=== PATIENT | female | born 1990 | race Caucasian/White ===

== ENCOUNTER 2018-08-30 19:21 | Emergency (ER) | payer MEDICAID, OTHER ==
--- NOTE | 2018-08-30 20:08 | XRAY Report ---
Reason: injury Procedure Date: 08/30/2018 Accession Number: [id number] / [id number] Procedure: XR - Knee 4 View RT CPT Code: FULL RESULT: EXAM: RIGHT KNEE PAIN AFTER TWISTING INJURY PLAYING SOCCER. KNEE RADIOGRAPHY EXAM DATE: 08/30/2018 07:43 PM. CLINICAL HISTORY: Injury. COMPARISON: None. TECHNIQUE: 4 views. FINDINGS: Bones: Normal. No fractures or bone lesions. Joints: Normal. No effusion. No subluxations. Soft Tissues: Normal. No soft tissue swelling. IMPRESSION: Normal knee radiography. [facility]
[2018-08-30 21:13] VITALS: BP 114/75
[2018-08-30] MEDS ORDERED: HYDROcod/ACETAM 5/325 MG TABLET PO STA (21:18)
--- NOTE | 2018-08-30 21:20 | ED Physician Documentation ---
History of Present Illness - Stated complaint Stated Complaint: RT KNEE INJURY - Chief complaint Chief Complaint: General - History obtained from History obtained from: Patient - History of Present Illness Timing: Today, How many hours ago (2) Pain level max: 10 Pain level now: 8 Improved by: rest Worsened by: movement - Additonal information Additional information: Patient injured her right knee while playing soccer tonight at approximately 630. States hurts on the medial aspect of the knee. Review of Systems Constitutional: denies: Fever : denies: Now EGA Skin: denies: Rash Musculoskeletal: denies: Neck pain, Back pain PD PAST MEDICAL HISTORY - Past Medical History Past Medical History: No - Past Surgical History Past Surgical History: No - Present Medications Home Medications: Ambulatory Orders Medication Instructions Recorded Confirmed Hydrocodone/Acetaminophen 1 - 2 each PO Q6H PRN #10 tablet 08/30/18 [Hydrocodon-Acetaminophen 5-325] Ibuprofen [Motrin] 800 mg PO Q8H PRN #30 tablet 08/30/18 - Allergies Allergies/Adverse Reactions: Allergies Allergy/AdvReac Type Severity Reaction Status Date / Time No Known Drug Allergies Allergy Verified 08/30/18 19:27 - Living Situation Living Situation: reports: With family Living Arrangement: reports: At home - Social History Does the pt have substance abuse?: No - Family History Family history: reports: Non contributory PD ED PE NORMAL - Vitals Vital signs reviewed: Yes - General General: Alert and oriented X 3, No acute distress - HEENT HEENT: Moist mucous membranes - Neck Neck: Supple, no meningeal sign - Derm Derm: Warm and dry - Extremities Extremities: Other (Right knee- ACL, LCL, PCL are intact. Slight laxity of the MCL. No joint effusion. No tenderness along the joint line. Unable to tolerate meniscus testing. Neurovascularly intact) - Neuro Neuro: Alert and oriented X 3 Results - Vitals Vitals: Vital Signs - 24 hr 08/30/18 08/30/18 19:24 21:12 Temperature 36.7 C 36.8 C Heart Rate 76 66 Respiratory 16 16 Rate Blood Pressure 126/77 114/75 O2 Saturation 100 100 Oxygen O2 Source Room air - Rads (name of study) R knee xray Radiology: Prelim report reviewed, EMP read contemporaneously, See rad report ( Normal knee radiography. ) PD MEDICAL DECISION MAKING - ED course Complexity details: reviewed results, re-evaluated patient, considered differential, d/w patient ED course: 28-year-old female with a right knee injury. Appears to be an MCL sprain. Cannot fully exclude meniscus injury. Placed in an articulating knee brace and given crutches. Will have her follow-up with orthopedics for further care. No acute findings on x-ray of the knee. Patient counseled regarding signs and symptoms for which I believe and urgent re-evaluation would be necessary. Patient with good understanding of and agreement to plan and is comfortable going home at this time This document was made in part using voice recognition software. While efforts are made to proofread this document, sound alike and grammatical errors may occur. Departure - Departure Disposition: 01 Home, Self Care Clinical Impression: Sprain of right knee Qualifiers: Encounter type: initial encounter Involved ligament of knee: medial collateral ligament Qualified Code(s): S83.411A - Sprain of medial collateral ligament of right knee, initial encounter Condition: Good Instructions: ED Sprain Knee Follow-Up: [facility] [Provider Group] - Within 1 week Prescriptions: Hydrocodone/Acetaminophen [Hydrocodon-Acetaminophen 5-325] 1 - 2 each PO Q6H PRN #10 tablet PRN Reason: pain Ibuprofen [Motrin] 800 mg PO Q8H PRN #30 tablet PRN Reason: PAIN &/OR FEVER Comments: Return if you worsen. Follow-up with orthopedics within 1 week for repeat evaluation of your knee. You may bear weight as tolerated. Do not drink alcohol or drive while on narcotic pain medicine. Note that many narcotic pain relievers also contain tylenol/acetaminophen. Please ensure that your total dose of acetaminophen from all sources does not exceed 3 grams (3000mg) per day. You may constipated on this medication, take a stool softener such as "Colace" twice a day while you are on it. Also recommend a [id number] laxative such as senna or MiraLAX any day that you do not have a bowel movement. If you received narcotic pain medication in the emergency department, do not drive or operate machinery for the next 24 hours. Discharge Date/Time: 08/30/18 21:35
== END 2018-08-30 21:35 | disposition home or self-care (01) ==
LOC: ED 19:21
DX: S83.411A Sprain of medial collateral ligament of right knee, initial encounter (principal); X58.XXXA Exposure to other specified factors, initial encounter; Y93.66 Activity, soccer
CPT/HCPCS: 73564; 99283; A9270